=== PATIENT | male | born 1950 | race Caucasian/White ===

== ENCOUNTER 2016-12-09 11:49 | Day surgery (SDC) | payer BC ==
[2016-12-08 08:30] VITALS: BMI 31.1
[~2016-12-09 11:49] MED LIST: LACTATED RINGERS 1,000 ML IV SCH
[2016-12-09 12:39] VITALS: TEMP 97.2
[2016-12-09] MEDS ORDERED: fentaNYL (PF) 50 MCG/ML 2 ML AMP ONE (13:09)
[2016-12-09] MEDS ORDERED: PROPOFOL 10 MG/ML 20 ML VIAL IV ONE (13:09)
[2016-12-09] MEDS ORDERED: MIDAZOLAM 2 MG/2 ML VIAL ONE (13:09)
--- NOTE | 2016-12-09 13:17 | P.GSHP ---
History of Present Illness H&P Date: 12/09/16 Chief Complaint: History of colon polyps This 65-year-old male with history of colon polyps. He presents today for colonoscopy. Past Medical History Past Medical History: Hyperlipidemia, Musculoskeletal Disorder Additional Past Medical History / Comment(s): HX COLON POLYPS. RLS. PAIN IN FEET, NT IN TOES. History of Any Multi-Drug Resistant Organisms: None Reported Past Surgical History: Hernia Repair, Orthopedic Surgery Additional Past Surgical History / Comment(s): COLONOSCOPY. ORIF RT ARM/ELBOW. Past Anesthesia/Blood Transfusion Reactions: No Reported Reaction Smoking Status: Never smoker - Past Family History Father Family Medical History: Cancer Mother Family Medical History: Cancer Medications and Allergies Home Medications Medication Instructions Recorded Confirmed Type Amitriptyline HCl 10 mg PO HS PRN 12/08/16 12/09/16 History Aspirin [Adult Low Dose Aspirin EC] 81 mg PO DAILY 12/08/16 12/09/16 History Atorvastatin [Lipitor] 20 mg PO DAILY 12/08/16 12/09/16 History Levothyroxine Sodium [Synthroid] 75 mcg PO DAILY 12/08/16 12/09/16 History Meloxicam [Mobic] 15 mg PO DAILY PRN 12/08/16 12/09/16 History Multivitamin [Multivitamins Adult 2 each PO DAILY 12/08/16 12/09/16 History Gummies] rOPINIRole HCL [Requip] 0.5 mg PO HS PRN 12/08/16 12/09/16 History Allergies Allergy/AdvReac Type Severity Reaction Status Date / Time No Known Allergies Allergy Verified 12/09/16 12:38 Surgical - Exam Vital Signs Temp Pulse Resp BP Pulse Ox 97.2 F L 92 16 159/91 97 12/09/16 12:29 12/09/16 12:29 12/09/16 12:29 12/09/16 12:29 12/09/16 12:29 - General well developed, no distress - Eyes PERRL - ENT normal pinna - Neck no masses - Respiratory normal expansion - Cardiovascular Rhythm: regular - Abdomen Abdomen: soft, non tender Assessment and Plan Plan: History of colon polyps. We'll perform colonoscopy.
--- NOTE | 2016-12-09 13:25 | P.OP ---
Date of Procedure: 12/09/16 Preoperative Diagnosis: Colon polyps Postoperative Diagnosis: Rectal polyp Diverticulosis Procedure(s) Performed: Colonoscopy Anesthesia: MAC Surgeon: Damián Cutler Pathology: other (Rectal polyp) Condition: stable Disposition: PACU Description of Procedure: Patient's placed on the endoscopy table in the lateral position. He received IV sedation. Digital rectal exam was performed which revealed a few external hemorrhoids. The flexible colonoscope was then placed patient anus passed throughout the entire colon. The ileocecal valve was visualized. The cecum, ascending and transverse colon appeared normal. The descending is mild diverticular changes. Scope was then brought back the rectum and there was a small polyp seen was removed forcep. Scope was withdrawn for patient.
[2016-12-09 13:29] VITALS: RESP 18
[2016-12-09 14:02] VITALS: BP 136/84; PULSE 61
== END 2016-12-09 14:20 | disposition home or self-care (01) ==
LOC: ORWHC2ENDO 11:49
PROVIDERS: ATTEND Surgery
DX: D12.8 Benign neoplasm of rectum (principal); K62.1 Rectal polyp; K57.30 Diverticulosis of large intestine without perforation or abscess without bleeding; K64.8 Other hemorrhoids; Z86.010 Personal history of colon polyps; E78.5 Hyperlipidemia, unspecified; E07.9 Disorder of thyroid, unspecified; G25.81 Restless legs syndrome; Z79.1 Long term (current) use of non-steroidal anti-inflammatories (NSAID); Z79.899 Other long term (current) drug therapy; Z79.82 Long term (current) use of aspirin
CPT/HCPCS: 88305; 45380; J2250; J3010; J2704

== ENCOUNTER 2018-07-06 06:40 | Day surgery (SDC) | payer BC, MEDICARE ==
[2018-07-01 13:24] VITALS: BMI 31.8
[~2018-07-06 06:40] MED LIST changes: +LIDOCAINE 1% 20 ML VIAL (10MG/ML) FOR IV START INTRADERMA PRN
[2018-07-06 07:14] VITALS: TEMP 98.3
[2018-07-06] MEDS ORDERED: PROPOFOL 10 MG/ML 20 ML VIAL IV ONE (07:27)
--- NOTE | 2018-07-06 07:30 | P.GSHP ---
History of Present Illness H&P Date: 07/06/18 Chief Complaint: History of colonic polyps Cyst 67-year-old male with history of colonic polyps. Patient resents today for colonoscopy. His last colonoscopy was over 2 years ago. He's had some rectal bleeding. Past Medical History Past Medical History: Hyperlipidemia, Hypertension, Musculoskeletal Disorder Additional Past Medical History / Comment(s): HX COLON POLYPS. neuropathy feet History of Any Multi-Drug Resistant Organisms: None Reported Past Surgical History: Hernia Repair, Orthopedic Surgery Additional Past Surgical History / Comment(s): COLONOSCOPY. ORIF RT ARM/ELBOW. Past Anesthesia/Blood Transfusion Reactions: No Reported Reaction Past Psychological History: No Psychological Hx Reported Smoking Status: Never smoker Past Alcohol Use History: Rare Past Drug Use History: None Reported - Past Family History Father Family Medical History: Cancer Mother Family Medical History: Cancer Medications and Allergies Home Medications Medication Instructions Recorded Confirmed Type Atorvastatin [Lipitor] 20 mg PO DAILY 12/08/16 07/06/18 History Levothyroxine Sodium [Synthroid] 75 mcg PO DAILY 12/08/16 07/06/18 History Meloxicam [Mobic] 15 mg PO DAILY PRN 12/08/16 07/06/18 History Multivitamin [Multivitamins Adult 1 each PO DAILY 12/08/16 07/01/18 History Gummies] amLODIPine [Norvasc] 5 mg PO DAILY 07/01/18 07/06/18 History Allergies Allergy/AdvReac Type Severity Reaction Status Date / Time No Known Allergies Allergy Verified 07/06/18 07:07 Surgical - Exam Vital Signs Temp Pulse Resp BP Pulse Ox 98.3 F 93 17 158/75 96 07/06/18 07:13 07/06/18 07:13 07/06/18 07:13 07/06/18 07:13 07/06/18 07:13 - General well developed, well nourished, no distress - Eyes PERRL - ENT normal pinna - Neck no masses - Respiratory normal expansion - Cardiovascular Rhythm: regular - Abdomen Abdomen: soft, non tender Assessment and Plan Assessment: History of colon polyps. We'll perform colonoscopy.
--- NOTE | 2018-07-06 07:43 | P.OP ---
Date of Procedure: 07/06/18 Preoperative Diagnosis: GI bleed History of colonic polyps Postoperative Diagnosis: Diverticulosis external hemorrhoid Procedure(s) Performed: Colonoscopy Anesthesia: MAC Surgeon: Damián Cutler Pathology: none sent Condition: stable Disposition: PACU Description of Procedure: The patient's placed on the endoscopy table in the lateral position. He received IV sedation. Digital rectal exam was performed which revealed external hemorrhoids. The prostate was symmetric without nodules. The flexible colonoscope was then placed patient anus passed throughout the entire colon. The ileocecal valve was visually is. The cecum, ascending and transverse colon appeared normal. In the descending and sigmoid colon there is moderate diverticulosis. The scope was then brought back the rectum was normal. Scope was withdrawn through the anus. There is minimal internal hemorrhoids and enlarged external hemorrhoids. There is no evidence of any active GI bleed. It is presumed the patient had bled from his external hemorrhoids. Scope was withdrawn for patient.
[2018-07-06 07:51] VITALS: RESP 18
[2018-07-06 08:08] VITALS: BP 131/72; PULSE 62
== END 2018-07-06 08:21 | disposition home or self-care (01) ==
LOC: ORWHC2ENDO 06:40
PROVIDERS: ATTEND Surgery
DX: K57.30 Diverticulosis of large intestine without perforation or abscess without bleeding (principal); K64.4 Residual hemorrhoidal skin tags; K64.8 Other hemorrhoids; E78.5 Hyperlipidemia, unspecified; I10 Essential (primary) hypertension; Z86.010 Personal history of colon polyps; Z79.890 Hormone replacement therapy; Z79.899 Other long term (current) drug therapy
CPT/HCPCS: 45378; J2704